=== PATIENT | female | born 1960 | race African-American/Black ===

== ENCOUNTER → 2020-09-06 | Outpatient (CLI) | payer OTHER ==
[~2020-09-06] MED LIST: ASPIRIN 32325 MG/TAB PO; CLARITIN PO; EXCEDRIN TENSION HA PO; NIGHT-TIME COL300 ML; TYLENOL 325MG325 MG PO
== END ==
LOC: MC.RAD 08:39
DX: Z12.31 Encounter for screening mammogram for malignant neoplasm of breast (principal); N63.14 Unspecified lump in the right breast, lower inner quadrant

== ENCOUNTER → 2020-09-10 | Outpatient (CLI) | payer OTHER | LOC: MC.RAD 06:56 | DX: N60.02 Solitary cyst of left breast (principal) ==

== ENCOUNTER → 2021-09-07 | Outpatient (CLI) | payer OTHER | LOC: MC.RAD 08:21 | DX: Z12.31 Encounter for screening mammogram for malignant neoplasm of breast (principal) ==